=== PATIENT | male | born 1995 | race Caucasian/White ===

== ENCOUNTER → 2017-01-15 | Outpatient (CLI) | payer OTHER ==
--- NOTE | ~2017-01-15 | US6 ---
[facility] A Service of [facility] & [facility] RADIOLOGY TEXT RESULTS PATIENT: YESSI MARRUFO LOCATION: [facility] : [birth year] UNIT #: [id number] AGE: [address]: GLO HARDY APRN SEX: M ORDER DR: [id number] [facility] [address] [place], [place] [address] [id number] O MR#: [id number] Acc #: [id number] NAME: YESSI MARRUFO : 1995 SEX: M STUDY DATE/TIME: 01/15/2017 10:16 UNIT: US ROOM: STUDY DESCRIPTION: US Abdominal Limited Attending Physician: Glo Hardy Np Referring Physician: Glo Hardy Np Ordering Physician: Glo Hardy Np Primary Care Physician: No Primary Care Physician MEDICAL IMAGING REPORT This report is preliminary unless electronic signature is present EXAM Right upper quadrant ultrasound, 01/15/2017. HISTORY Abnormally elevated liver enzymes on 01/07/2017. FINDINGS Ultrasound examination of the gallbladder is negative. There is no cholelithiasis, gallbladder wall thickening, or bile duct dilatation. The visualized liver is negative. IMPRESSION Negative gallbladder ultrasound examination. Dictated by... David Morataya M.D. THIS IS AN ELECTRONICALLY VERIFIED REPORT David Morataya M.D. at 01/16/2017 9:23 AM MAYCOL/fanny TD: 01/15/2017 15:16 JOB #: [id number] MEDICAL IMAGING REPORT Page 1 of 1 COPY
== END | disposition home or self-care (01) ==
LOC: CGUS 09:51
DX: R74.8 Abnormal levels of other serum enzymes (principal)
CPT/HCPCS: 76705